=== PATIENT | female | born 2000 | race Hispanic/Latino ===

== ENCOUNTER → 2025-03-25 14:54 | Outpatient (CLI) | payer OTHER, SELFPAY ==
[2025-03-25 15:14] LABS: Add Manual Diff / Slide Review NO; Hematocrit 40.6 % (36-46); Hemoglobin 13.9 g/dL (12.0-16.0); Lymphocytes Absolute Auto 2600 /uL (1100-4500); Mean Corpuscular HGB Conc 34.4 % (30-36); Mean Corpuscular Hemoglobin 25.8 PG (26-34); Mean Corpuscular Volume 75.1 fL (80-100); Platelet Count 324 X10^3/uL (150-400)
[2025-03-25 15:34] LABS: HEMOLYSIS < 15 (0-50); Iron 79 ug/dL (37-170)
[2025-03-25 15:36] LABS: Alanine Aminotransferase 20 IU/L (<35); Albumin 5.1 g/dL (3.5-5.0); Albumin Globulin Ratio 1.5 (1.0-2.8); Alkaline Phosphatase 88 U/L (38-126); Blood Urea Nitrogen 13 mg/dL (7-17); Calcium 9.5 mg/dL (8.4-10.2); Carbon Dioxide 23 mmol/L (22-32); Chloride 104 mmol/L (98-107); Estimated Glomerular Filt Rate > 60 mL/min (>60); Globulin 3.4 g/dL (1.7-4.1); Glucose 82 mg/dL (70-99); HEMOLYSIS < 15 (0-50); Potassium 4.1 mmol/L (3.4-5.1); Sodium 138 mmol/L (137-145); Total Protein 8.5 g/dL (6.3-8.2)
[2025-03-25 15:48] LABS: Percent Iron Saturation 19 % (15-50); Total Iron Binding Capacity 422 ug/dL (265-497); Transferrin 385 mg/dL (206-381)
[2025-03-25 16:06] LABS: Thyroid Stimulating Hormone 1.36 uIU/mL (0.47-4.68)
[2025-03-25 16:12] LABS: Ferritin 21 ng/mL (6-137)
[2025-03-25 16:42] LABS: Folate 10.8 ng/mL (2.76-20.0); Vitamin B12 613 pg/mL (239-931)
== END ==
PROVIDERS: PCP Student in an Organized Health Care Education/Training Program; Referring Provider Student in an Organized Health Care Education/Training Program; Visit Provider Student in an Organized Health Care Education/Training Program
DX: R53.83 Other fatigue (principal)
CPT/HCPCS: 36415; 80053; 82607; 82728; 82746; 83540; 83550; 84443; 85025